=== PATIENT | male | born 1990 | race Caucasian/White ===

== ENCOUNTER 2017-02-14 08:22 | Emergency (ER) | payer OTHER ==
[~2017-02-14] VITALS: Ht 172.7 cm; Wt 65.3 kg
--- NOTE | 2017-02-14 08:30 | NUR ---
PATIENT TO ED DT " I HAVE BEEN GOING ALOT TO THE [facility] AND TODAY IT'S HARD TO GO, I HAVE PAIN". PATIENT DENIES HEMATURIA- PAIN SCALE OF 6/10, SHARP. PATIENT IS AFEBRILE. ALSO CHESTPAIN, NON RADIATING. VSS. PENDING MD ELIZONDO
--- NOTE | 2017-02-14 08:40 | NUR ---
MD LYONS AT BEDSIDE
--- NOTE | 2017-02-14 08:41 | NUR ---
EKG IN PROGRESS
--- NOTE | 2017-02-14 08:49 | NUR ---
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
[2017-02-14 08:57] LABS: APPEARANCE,URINE CLEAR (CLEAR); BILIRUBIN,URINE NEGATIVE (NEGATIVE); BLOOD, URINE NEGATIVE Ery/uL (NEGATIVE); COLOR,URINE YELLOW (YELLOW); KETONES,URINE NEGATIVE (NEGATIVE); LEUKOCYTE ESTERASE ,URINE NEGATIVE (NEGATIVE); NITRITE, URINE NEGATIVE (NEGATIVE); PROTEIN,URINE TRACE mg/dl (NEGATIVE); UGLUCOSE NEGATIVE (NEGATIVE); UROBILINOGEN,URINE 0.2 EU/dL (0.2)
[2017-02-14 09:10] LABS: BACTERIA,URINE None seen /HPF (None Seen); RBC,URINE 0-2 /HPF (0-2); SQUAMOUS EPITHELIAL CELL,UR None Seen /HPF (None Seen); WBC,URINE 0-2 /HPF (0-3)
[2017-02-14 09:32] VITALS: BP 128/80
--- NOTE | 2017-02-14 09:32 | NUR ---
Patient discharged to home in stable condition. Written and verbal after care instructions given. Patient verbalizes understanding of instruction.
== END 2017-02-14 09:33 | disposition home or self-care (01) ==
LOC: ER 08:25
DX: R10.13 Epigastric pain (principal); F12.10 Cannabis abuse, uncomplicated
CPT/HCPCS: 71010; 81001; 93005; 99285; A4606; Z7610; 81000-TC